=== PATIENT | female | born 1960 | race Caucasian/White ===

== ENCOUNTER 2016-09-15 06:29 | Day surgery (SDC) | payer MEDICAID ==
[~2016-09-15] VITALS: Ht 165.1 cm; Wt 79.4 kg
--- NOTE | ~2016-09-15 | OP ---
PATIENT NAME: FLY HERR MEDICAL RECORD: [id number] :64 LOCATION:[facility] ADMISSION DATE: SURGEON: VENICE AMAYA MD DATE OF OPERATION: 09/15/2016 PREOPERATIVE DIAGNOSES: Chronic tonsillitis, recurrent uvula edema. POSTOPERATIVE DIAGNOSES: Chronic tonsillitis, recurrent uvula edema. PROCEDURES: Tonsillectomy and uvulectomy. SURGEON: Venice Amaya MD. ANESTHESIA: General orotracheal. BLOOD LOSS: Less than 5 cc. SPECIMENS: Right and left tonsil. COMPLICATIONS: None. DISPOSITION: Recovery stable. DESCRIPTION OF PROCEDURE: She is brought to the operating room and placed in supine position, sedated and intubated by anesthesia. Eyes were taped. The table was turned 90 degrees. Head drapes applied and she was positioned for tonsillectomy. Using a headlight, a Kelly-Johnathon mouth gag was carefully inserted and elevated on a towel on the chest. The palate was examined and palpated. It was normal. A mirror was used to examine the nasopharynx. There was no significant adenoid tissue. The choanae and eustachian tube orifices were normal bilaterally. The base of the uvula was injected with less than 0.5 cc of 1% lidocaine with 1:100,000 epinephrine with 1.5-inch, 27-gauge needle. The right tonsil was grasped at the superior pole with a straight Allis clamp. Spatula tip cautery on a setting of 9 was used to dissect out the tonsil along its capsule, preserving the anterior and posterior tonsillar pillar. The left tonsil was removed in the same fashion. Then, both sides of the nose were irrigated with saline. The pharynx was suctioned. Tonsillar fossae were agitated. Suction cautery on a setting of 20 was used to control minimal oozing. With the field clean and dry, the uvula was grasped with an Allis. An incision was made on the posterior aspect, preserving all the nasopharyngeal mucosa with a spatula tip cautery on a setting of 10 and then along the anterior surface as well. The uvula was divided, bleeding was controlled with cautery and then the wound was closed with interrupted and horizontal mattress 3-0 Vicryl sutures to close up the uvula defect and the superior aspect of the tonsils as well. With that completed, the pharynx was suctioned and the field was clean and dry. The Kelly-Johnathon mouth gag was let down and removed. She was awakened, extubated, and transported to recovery in good condition. No complications. TRANSINT:[id number] Voice Confirmation ID: [id number] DOCUMENT ID: [id number] OPERATIVE REPORT [id number] FLY HERR ERIC MD CC: [id number] DICTATION DATE: 09/15/16 1029 BLOWER MECHANIC: 09/15/16 1121 REG [place] [id number] [place] [id number]
--- NOTE | ~2016-09-15 | HP ---
PATIENT: FLY HERR MEDICAL RECORD: [id number] ACCOUNT: [id number] LOCATION:[facility] : 64 ADMISSION DATE: 09/15/16 HISTORY AND PHYSICAL EXAMINATION Preoperative History and Physical HISTORY OF PRESENT ILLNESS: Fly is a 55-year-old, who has been having problems with tonsillar hypertrophy and recurrent uvula edema. She is being admitted for tonsillectomy and uvulectomy. PAST MEDICAL HISTORY: Includes knee surgery, gastric bypass, hysterectomy, carpal tunnel bilaterally. CURRENT MEDICATIONS: Meloxicam, alendronate, iron, fluoxetine and folic acid. PHYSICAL EXAMINATION: GENERAL: She is healthy-appearing, developmentally normal. FACE: Normal and symmetric. No lesions. EYES: Sclerae and conjunctivae are normal. EARS: Canals and TMs are normal. NOSE: No masses, polyps, or drainage. ORAL CAVITY AND OROPHARYNX: Swollen edematous uvula, large tonsils. NECK: No masses, no adenopathy. CHEST: Clear. CARDIOVASCULAR: Regular rate and rhythm, no murmur. EXTREMITIES: Normal. IMPRESSION: Recurrent uvula edema, tonsillar hypertrophy with obstructive symptoms. PLAN: Tonsillectomy and uvulectomy. TRANSINT:[id number] Voice Confirmation ID: [id number] DOCUMENT ID: [id number] VENICE BAH MD CC: [id number] DICTATION DATE: 09/12/16925 ETYMOLOGY TEACHER: 09/12/16 1022 PRE [facility] [address] [place] [address]
[~2016-09-15 06:29] MED LIST: ALENDRONATE SOD70 MG PO; FOLIC ACID1 MG PO; MOBIC7.5 MG PO; PROZAC40 MG PO
[2016-09-15 07:25] LABS: HEMATOCRIT 37.2 % (36.0-48.0); HEMOGLOBIN 12.1 g/dL (12-16); MCH 30.3 pg (26.0-34.0); MCHC 32.5 g/dL (31.0-37.0); MCV 93.2 fL (80.0-100.0); MEAN PLATELET VOLUME 11.1 fL (7.4-10.4); RBC 3.99 10x6/uL (4.00-5.40); RDW 13.4 % (11.5-14.5); WBC 4.4 10x3/uL (4.8-10.8)
[2016-09-15 08:54] VITALS: BP 101/73; Ht 165.1 cm; Wt 79.4 kg
--- NOTE | 2016-09-15 10:25 | NUR ---
OPA OUT AT THIS TIME
[2016-09-15] MEDS ORDERED: HYDROCODON-ACET15 ML PO (12:00)
[2016-09-15] MEDS ORDERED: KEFLEX250 MG PO (12:02)
--- NOTE | 2016-09-15 17:19 | NUR ---
1230 DRESSED. AWAKE & ALERT. GIVEN D/C INFORMATION INCLUDING: RX'S 2: LORTAB ELIXIR, KEFLEX, MED REC, [facility] D/C INSTRUCTIONS FOR UVULOPLASTY & TONSILLECTOMY, & OPS D/C INSTRUCTIONS. PT VOICED UNDERSTANDING. TO PRIVATE CAR PER WHEELCHAIR BY THIS NURSE. HOME WITH KARIE MORELOS. Patricio MARTINEZ R.N.
== END 2016-09-15 12:30 | disposition home or self-care (01) ==
LOC: D.OPS 06:29 → D.PAN 08:00 → D.OPS 12:30
PROVIDERS: Anesthesiology
DX: J35.01 Chronic tonsillitis (principal); K13.79 Other lesions of oral mucosa; Z98.84 Bariatric surgery status